=== PATIENT | male | born 1985 | race Two or more races ===

== ENCOUNTER 2019-09-13 19:29 | Emergency (ER) | payer OTHER ==
[~2019-09-13] VITALS: Ht 180.3 cm; Wt 68.2 kg
[2019-09-13 20:49] LABS: BASOPHILS % (AUTO) 0.7 % (0.0-2.0); EOSINOPHILS % (AUTO) 2.8 % (1.0-6.0); HEMATOCRIT 47.3 % (41-53); LYMPHOCYTES # (AUTO) 1.4 K/uL (1.0-4.8); MEAN CORPUSCULAR HEMOGLOBIN 32.1 pg (26.0-34.0); MEAN CORPUSCULAR HGB CONC 33.9 G/dL (31.0-37.0); MEAN CORPUSCULAR VOLUME 95 fL (80-100); MONOCYTES # (AUTO) 0.4 K/uL (0.1-1.0); MONOCYTES % (AUTO) 7.6 % (2.0-9.0); NEUTROPHILS # (AUTO) 3.2 K/uL (1.8-7.7); NEUTROPHILS % (AUTO) 61.9 % (40.0-70.0); PLATELET COUNT (AUTO) 225 K/uL (150-450); RED BLOOD CELL COUNT(AUTO) 4.99 MIL/uL (4.50-5.90); RED CELL DISTRIBUTION WIDTH 12.8 % (11.5-14.5)
[2019-09-13 21:05] LABS: ANION GAP 6 mmol/L (8-16); CARBON DIOXIDE 31 mmol/L (22-29); CHLORIDE 105 mmol/L (98-107); CREATININE 1.03 mg/dL (0.60-1.30); GLOMERULAR FILTR. RATE CALC > 60 mL/min (>60); GLUCOSE,RANDOM 117 mg/dL (70-110); POTASSIUM 4.1 mmol/L (3.5-5.1); SODIUM SERUM 142 mmol/L (136-145); UREA NITROGEN, BLOOD 14 mg/dL (7-18)
[2019-09-13 21:12] LABS: ALANINE AMINOTRANSFERASE 37 U/L (12-78); ALBUMIN 3.9 g/dL (3.4-5.0); ALKALINE PHOSPHATASE 64 U/L (46-116); ASPARTATE AMINOTRANSFERASE 20 U/L (15-37); BILIRUBIN,TOTAL 0.6 mg/dL (0.1-1.0)
[2019-09-13 21:50] LABS: AMPHET/METH SCREEN,URINE POSITIVE (NEGATIVE); BARBITURATE SCREEN, URINE NEGATIVE (NEGATIVE); BENZODIAZEPINES SCREEN,URINE NEGATIVE (NEGATIVE); CANNABINOID SCREEN,URINE POSITIVE (NEGATIVE); COCAINE SCREEN,URINE NEGATIVE (NEGATIVE); METHADONE SCREEN, URINE NEGATIVE (NEGATIVE); OPIATE SCREEN,URINE NEGATIVE (NEGATIVE)
[2019-09-13 21:53] LABS: PHENCYCLIDINE SCREEN,URINE NEGATIVE (NEGATIVE)
[2019-09-13] MEDS ORDERED: NICOTINE 7 MG/24 HOUR PATCH TD ONE (22:00)
[2019-09-13 22:20] VITALS: BP 145/94
== END 2019-09-14 00:23 | disposition home or self-care (01) ==
LOC: EMS 19:32
DX: F15.10 Other stimulant abuse, uncomplicated (principal); R45.89 Other symptoms and signs involving emotional state; F17.210 Nicotine dependence, cigarettes, uncomplicated
CPT/HCPCS: 36415; 80053; 80307; 85025; 99285; 99406; G0480

== ENCOUNTER 2020-02-11 14:01 | Inpatient (IN) | payer MEDICAID, OTHER ==
[~2020-02-11] VITALS: Ht 180.3 cm; Wt 68.2 kg
[2020-02-11 14:53] LABS: BASOPHILS % (AUTO) 0.6 % (0.0-2.0); EOSINOPHILS % (AUTO) 1.6 % (1.0-6.0); HEMATOCRIT 49.4 % (41-53); HEMOGLOBIN 16.9 g/dL (13.5-17.5); LYMPHOCYTES # (AUTO) 1.5 K/uL (1.0-4.8); LYMPHOCYTES % (AUTO) 22.2 % (22.0-44.0); MEAN CORPUSCULAR HEMOGLOBIN 32.4 pg (26.0-34.0); MEAN CORPUSCULAR HGB CONC 34.1 G/dL (31.0-37.0); MEAN CORPUSCULAR VOLUME 95 fL (80-100); MONOCYTES # (AUTO) 0.5 K/uL (0.1-1.0); MONOCYTES % (AUTO) 8.2 % (2.0-9.0); NEUTROPHILS # (AUTO) 4.5 K/uL (1.8-7.7); NEUTROPHILS % (AUTO) 67.4 % (40.0-70.0); PLATELET COUNT (AUTO) 227 K/uL (150-450); RED BLOOD CELL COUNT(AUTO) 5.21 MIL/uL (4.50-5.90); RED CELL DISTRIBUTION WIDTH 13.2 % (11.5-14.5)
[2020-02-11 15:10] LABS: ANION GAP 6 mmol/L (8-16); CALCIUM, TOTAL 9.4 mg/dL (8.8-10.5); CARBON DIOXIDE 31 mmol/L (22-29); CHLORIDE 102 mmol/L (98-107); CREATININE 1.04 mg/dL (0.60-1.30); GLOMERULAR FILTR. RATE CALC > 60 mL/min (>60); GLUCOSE,RANDOM 97 mg/dL (70-110); POTASSIUM 3.9 mmol/L (3.5-5.1); SODIUM SERUM 139 mmol/L (136-145); UREA NITROGEN, BLOOD 20 mg/dL (7-18)
[2020-02-11 15:17] LABS: ALANINE AMINOTRANSFERASE 35 U/L (12-78); ALBUMIN 4.5 g/dL (3.4-5.0); ALKALINE PHOSPHATASE 56 U/L (46-116); ASPARTATE AMINOTRANSFERASE 24 U/L (15-37); BILIRUBIN,TOTAL 0.8 mg/dL (0.1-1.0); TOTAL PROTEIN, SERUM 8.1 g/dL (6.4-8.2)
[2020-02-11 15:33] LABS: AMPHET/METH SCREEN,URINE POSITIVE (NEGATIVE); BARBITURATE SCREEN, URINE NEGATIVE (NEGATIVE); BENZODIAZEPINES SCREEN,URINE NEGATIVE (NEGATIVE); CANNABINOID SCREEN,URINE POSITIVE (NEGATIVE); COCAINE SCREEN,URINE NEGATIVE (NEGATIVE); METHADONE SCREEN, URINE NEGATIVE (NEGATIVE); OPIATE SCREEN,URINE NEGATIVE (NEGATIVE)
[2020-02-11 15:34] LABS: PHENCYCLIDINE SCREEN,URINE NEGATIVE (NEGATIVE)
[2020-02-11] MEDS ORDERED: NICOTINE 14 MG/24 HOUR PATCH TD ONE (18:30)
[2020-02-11] MEDS ORDERED: DiphenhydrAMINE HCL 50 MG/ML VIAL IM ONE (18:30)
[2020-02-11] MEDS ORDERED: ZOLPIDEM TARTRATE 10 MG TABLET PO PRN (18:30)
[2020-02-11] MEDS ORDERED: LORazepam 2 MG/ML VIAL IM ONE (18:30)
[2020-02-11] MEDS ORDERED: HALOPERIDOL LACTATE 5 MG/ML VIAL IM ONE (18:30)
[2020-02-11 22:41] VITALS: BP 103/66
[2020-02-12 04:41] VITALS: BP 125/88
[2020-02-12 10:04] VITALS: BP 131/78
[2020-02-12] MEDS: NICOTINE 21 MG/24 HOUR PATCH TD PRN (10:31)
[2020-02-12] MEDS: HALOPERIDOL 5 MG TABLET PO PRN (11:42)
[2020-02-12] MEDS: LORazepam 2 MG TABLET PO PRN (11:43)
[2020-02-12 16:24] VITALS: BP 143/79
[2020-02-13 04:26] VITALS: BP 131/86
[2020-02-13] MEDS ORDERED: HALOPERIDOL LACTATE 5 MG/ML VIAL IM ONE (05:15)
[2020-02-13] MEDS ORDERED: LORazepam 2 MG/ML VIAL IM ONE (05:15)
[2020-02-13] MEDS ORDERED: DiphenhydrAMINE HCL 50 MG/ML VIAL IM ONE (05:15)
[2020-02-13] MEDS: DIVALPROEX SODIUM 500 MG DR TABLET PO SCH ×2 (09:00→16:48)
[2020-02-13] MEDS: RisperiDONE 3 MG TABLET PO SCH ×2 (09:00→16:49)
[2020-02-13 16:17] VITALS: BP 103/66
[2020-02-14 08:19] VITALS: BP 138/94
[2020-02-14] MEDS: LORazepam 2 MG TABLET PO PRN (08:35)
[2020-02-14] MEDS: NICOTINE 21 MG/24 HOUR PATCH TD PRN (08:35)
[2020-02-14] MEDS: DIVALPROEX SODIUM 500 MG DR TABLET PO SCH ×2 (08:35→17:00)
[2020-02-14] MEDS: RisperiDONE 3 MG TABLET PO SCH ×2 (08:35→17:00)
[2020-02-14] MEDS ORDERED: HALOPERIDOL LACTATE 5 MG/ML VIAL ONE (13:00)
[2020-02-14] MEDS ORDERED: LORazepam 2 MG/ML VIAL ONE (13:00)
[2020-02-14] MEDS ORDERED: DiphenhydrAMINE HCL 50 MG/ML VIAL ONE (13:00)
[2020-02-14] MEDS ORDERED: HALOPERIDOL LACTATE 5 MG/ML VIAL IM ONE (14:00)
[2020-02-14] MEDS ORDERED: DiphenhydrAMINE HCL 50 MG/ML VIAL IM ONE (14:00)
[2020-02-14] MEDS ORDERED: LORazepam 2 MG/ML VIAL IM ONE (14:00)
[2020-02-15 05:35] VITALS: BP 123/82
[2020-02-15] MEDS: RisperiDONE 3 MG TABLET PO SCH ×2 (08:33→16:53)
[2020-02-15] MEDS: DIVALPROEX SODIUM 500 MG DR TABLET PO SCH ×2 (08:33→16:53)
[2020-02-15] MEDS ORDERED: LORazepam 2 MG/ML VIAL ONE (12:35)
[2020-02-15] MEDS ORDERED: DiphenhydrAMINE HCL 50 MG/ML VIAL ONE (12:35)
[2020-02-15] MEDS ORDERED: LORazepam 2 MG/ML VIAL IM ONE (12:45)
[2020-02-15] MEDS ORDERED: DiphenhydrAMINE HCL 50 MG/ML VIAL IM ONE (12:45)
[2020-02-15] MEDS ORDERED: HALOPERIDOL LACTATE 5 MG/ML VIAL IM ONE (12:45)
[2020-02-15 16:20] VITALS: BP 118/66
[2020-02-16] MEDS ORDERED: LORazepam 2 MG/ML VIAL ONE (05:25)
[2020-02-16] MEDS ORDERED: DiphenhydrAMINE HCL 50 MG/ML VIAL ONE (05:25)
[2020-02-16] MEDS ORDERED: HALOPERIDOL LACTATE 5 MG/ML VIAL ONE (05:25)
[2020-02-16] MEDS ORDERED: LORazepam 2 MG/ML VIAL IM ONE (05:30)
[2020-02-16] MEDS ORDERED: HALOPERIDOL LACTATE 5 MG/ML VIAL IM ONE (05:30)
[2020-02-16] MEDS ORDERED: DiphenhydrAMINE HCL 50 MG/ML VIAL IM ONE (05:30)
[2020-02-16] MEDS: RisperiDONE 3 MG TABLET PO SCH ×2 (08:47→16:50)
[2020-02-16] MEDS: DIVALPROEX SODIUM 500 MG DR TABLET PO SCH ×2 (08:47→16:50)
[2020-02-16 16:20] VITALS: BP 112/77
[2020-02-16] MEDS: LORazepam 2 MG TABLET PO PRN (16:50)
[2020-02-16] MEDS: HALOPERIDOL 5 MG TABLET PO PRN (16:51)
[2020-02-17 08:50] VITALS: BP 126/86
[2020-02-17] MEDS: RisperiDONE 3 MG TABLET PO SCH ×2 (08:59→17:51)
[2020-02-17] MEDS: DIVALPROEX SODIUM 500 MG DR TABLET PO SCH ×2 (08:59→17:51)
[2020-02-17] MEDS: NICOTINE 21 MG/24 HOUR PATCH TD PRN (12:38)
[2020-02-17 16:18] VITALS: BP 122/75
[2020-02-18] MEDS: RisperiDONE 3 MG TABLET PO SCH (08:46)
[2020-02-18] MEDS: DIVALPROEX SODIUM 500 MG DR TABLET PO SCH (08:46)
[2020-02-18 08:50] VITALS: BP 127/88
[2020-02-18] MEDS: NICOTINE 21 MG/24 HOUR PATCH TD PRN (09:36)
[2020-02-18] MEDS ORDERED: RISP3TAB14 PO (10:44)
[2020-02-18] MEDS ORDERED: DIVA-112 PO (10:44)
== END 2020-02-18 13:05 | disposition home or self-care (01) | DRG 750 ==
LOC: EMS 14:04 → B3A 18:16 → UNDOADMIN 20:00
PROVIDERS: ADMIT Psychiatry & Neurology Psychiatry; ATTEND Psychiatry & Neurology Psychiatry
DX: F20.0 Paranoid schizophrenia (principal); F12.90 Cannabis use, unspecified, uncomplicated; F15.10 Other stimulant abuse, uncomplicated; G47.00 Insomnia, unspecified; R45.850 Homicidal ideations; F17.210 Nicotine dependence, cigarettes, uncomplicated; Z56.0 Unemployment, unspecified
CPT/HCPCS: 99291; G0480; J1200; J1630; J2060

== ENCOUNTER 2020-02-20 17:43 | Inpatient (IN) | payer MEDICAID, OTHER ==
[~2020-02-20] VITALS: Ht 175.3 cm; Wt 66.7 kg
[~2020-02-20 17:43] MED LIST: DIVA-112 PO; RISP3TAB14 PO
[2020-02-20 18:42] LABS: BASOPHILS % (AUTO) 0.3 % (0.0-2.0); EOSINOPHILS % (AUTO) 1.3 % (1.0-6.0); HEMATOCRIT 41.6 % (41-53); HEMOGLOBIN 14.3 g/dL (13.5-17.5); LYMPHOCYTES # (AUTO) 1.6 K/uL (1.0-4.8); LYMPHOCYTES % (AUTO) 20.1 % (22.0-44.0); MEAN CORPUSCULAR HEMOGLOBIN 32.6 pg (26.0-34.0); MEAN CORPUSCULAR HGB CONC 34.3 G/dL (31.0-37.0); MEAN CORPUSCULAR VOLUME 95 fL (80-100); MONOCYTES # (AUTO) 0.7 K/uL (0.1-1.0); MONOCYTES % (AUTO) 8.9 % (2.0-9.0); NEUTROPHILS # (AUTO) 5.5 K/uL (1.8-7.7); NEUTROPHILS % (AUTO) 69.4 % (40.0-70.0); PLATELET COUNT (AUTO) 158 K/uL (150-450); RED BLOOD CELL COUNT(AUTO) 4.38 MIL/uL (4.50-5.90)
[2020-02-20 18:58] LABS: ANION GAP 8 mmol/L (8-16); CARBON DIOXIDE 29 mmol/L (22-29); CHLORIDE 103 mmol/L (98-107); CREATININE 0.83 mg/dL (0.60-1.30); GLOMERULAR FILTR. RATE CALC > 60 mL/min (>60); GLUCOSE,RANDOM 124 mg/dL (70-110); POTASSIUM 3.3 mmol/L (3.5-5.1); SODIUM SERUM 140 mmol/L (136-145); UREA NITROGEN, BLOOD 20 mg/dL (7-18)
[2020-02-20 19:10] LABS: ALANINE AMINOTRANSFERASE 53 U/L (12-78); ALBUMIN 3.7 g/dL (3.4-5.0); ALKALINE PHOSPHATASE 63 U/L (46-116); ASPARTATE AMINOTRANSFERASE 44 U/L (15-37); BILIRUBIN,TOTAL 0.2 mg/dL (0.1-1.0); TOTAL PROTEIN, SERUM 6.5 g/dL (6.4-8.2); VALPROIC ACID 7 mcg/mL (50-100)
[2020-02-20] MEDS ORDERED: DiphenhydrAMINE HCL 50 MG/ML VIAL IM ONE (19:15)
[2020-02-20] MEDS ORDERED: HALOPERIDOL LACTATE 5 MG/ML VIAL IM ONE (19:15)
[2020-02-20] MEDS ORDERED: LORazepam 2 MG/ML VIAL IM ONE (19:15)
[2020-02-20] MEDS ORDERED: HALOPERIDOL 5 MG TABLET PO PRN (20:15)
[2020-02-20] MEDS ORDERED: ZOLPIDEM TARTRATE 10 MG TABLET PO PRN (20:15)
[2020-02-20] MEDS: POTASSIUM CHLORIDE 20 MEQ ER TABLET PO ONE ×2 (21:23→21:26)
[2020-02-21 01:00] VITALS: BP 125/75
[2020-02-21 01:59] VITALS: BP 125/81
[2020-02-21 02:00] VITALS: BP 125/91
[2020-02-21 03:00] VITALS: BP 128/71
[2020-02-21 04:00] VITALS: BP 122/76
[2020-02-21] MEDS ORDERED: BACITRACIN 28 GM OINTMENT TP PRN (07:00)
[2020-02-21] MEDS ORDERED: LOPERAMIDE HCL 2 MG CAPSULE PO PRN (07:00)
[2020-02-21] MEDS ORDERED: MAGNESIUM HYDROXIDE SUSPENSION 30 ML UDCUP PO PRN (07:00)
[2020-02-21] MEDS ORDERED: OMEPRAZOLE 20 MG CAPSULE PO PRN (07:00)
[2020-02-21] MEDS ORDERED: ONDANSETRON HCL 4 MG TABLET PO PRN (07:00)
[2020-02-21] MEDS ORDERED: PETROLATUM,WHITE 28 GM JELLY TP PRN (07:00)
[2020-02-21] MEDS ORDERED: ACETAMINOPHEN 325 MG TABLET PO PRN (07:00)
[2020-02-21] MEDS ORDERED: CloNIDine HCL 0.1 MG TABLET PO PRN (07:00)
[2020-02-21] MEDS ORDERED: ALBUTEROL SULFATE HFA 90 MCG/PUFF 8 GM INHALER IH PRN (07:00)
[2020-02-21] MEDS ORDERED: IBUPROFEN 600 MG TABLET PO PRN (07:00)
[2020-02-21] MEDS ORDERED: BENZOCAINE/MENTHOL LOZENGE PO PRN (07:00)
[2020-02-21] MEDS ORDERED: DOCUSATE SODIUM 100 MG CAPSULE PO PRN (07:00)
[2020-02-21] MEDS ORDERED: MAG HYDROX/AL HYDROX/SIMETH ES 30 ML SUSPENSION UDCUP PO PRN (07:00)
[2020-02-21] MEDS: LORazepam 2 MG TABLET PO PRN (09:27)
[2020-02-21 13:59] VITALS: BP 127/72
[2020-02-22 06:10] VITALS: BP 127/83
[2020-02-22 08:18] LABS: CHOL/HDL RATIO 2.5 (4.2-7.3)
[2020-02-22 08:43] VITALS: BP 138/115
[2020-02-22 09:15] VITALS: BP 129/74
[2020-02-22] MEDS: DIVALPROEX SODIUM 500 MG DR TABLET PO SCH ×3 (10:15→16:55)
[2020-02-22] MEDS: RisperiDONE 3 MG TABLET PO SCH ×3 (10:15→16:55)
[2020-02-22 16:17] VITALS: BP 125/83
[2020-02-22] MEDS: LORazepam 2 MG TABLET PO PRN (16:55)
[2020-02-23 04:57] VITALS: BP 121/68
[2020-02-23 04:58] VITALS: BP 121/68
[2020-02-23] MEDS: RisperiDONE 3 MG TABLET PO SCH ×2 (09:02→16:34)
[2020-02-23] MEDS: DIVALPROEX SODIUM 500 MG DR TABLET PO SCH ×2 (09:02→16:34)
[2020-02-23 09:04] VITALS: BP 108/67
[2020-02-23 11:10] VITALS: BP 108/67
[2020-02-23 16:11] VITALS: BP 106/64
[2020-02-23] MEDS: LORazepam 2 MG TABLET PO PRN (17:37)
[2020-02-24 06:04] VITALS: BP 118/70
[2020-02-24] MEDS: RisperiDONE 3 MG TABLET PO SCH ×2 (08:35→17:07)
[2020-02-24] MEDS: DIVALPROEX SODIUM 500 MG DR TABLET PO SCH ×2 (08:35→17:07)
[2020-02-24 14:14] VITALS: BP 120/76
[2020-02-24 16:19] VITALS: BP 129/76
[2020-02-24] MEDS: LORazepam 2 MG TABLET PO PRN (17:38)
[2020-02-25 05:51] VITALS: BP 112/67
[2020-02-25 08:11] VITALS: BP 136/75
[2020-02-25] MEDS: DIVALPROEX SODIUM 500 MG DR TABLET PO SCH ×2 (08:44→16:20)
[2020-02-25] MEDS: RisperiDONE 3 MG TABLET PO SCH ×2 (08:44→16:19)
[2020-02-25 16:18] VITALS: BP 128/72
[2020-02-25] MEDS: LORazepam 2 MG TABLET PO PRN (16:20)
[2020-02-26 06:32] VITALS: BP 118/76
[2020-02-26 08:17] VITALS: BP 128/77
[2020-02-26] MEDS: RisperiDONE 3 MG TABLET PO SCH ×2 (08:35→16:48)
[2020-02-26] MEDS: DIVALPROEX SODIUM 500 MG DR TABLET PO SCH ×2 (08:35→16:48)
[2020-02-26 16:22] VITALS: BP 112/71
[2020-02-26] MEDS: LORazepam 2 MG TABLET PO PRN (16:48)
[2020-02-27] MEDS: RisperiDONE 3 MG TABLET PO SCH ×2 (08:47→17:01)
[2020-02-27] MEDS: DIVALPROEX SODIUM 500 MG DR TABLET PO SCH ×2 (08:47→17:01)
[2020-02-27 16:10] VITALS: BP 118/72
[2020-02-27] MEDS: LORazepam 2 MG TABLET PO PRN (17:01)
[2020-02-28 00:24] VITALS: BP 130/82
[2020-02-28] MEDS: DIVALPROEX SODIUM 500 MG DR TABLET PO SCH ×2 (08:38→16:45)
[2020-02-28] MEDS: RisperiDONE 3 MG TABLET PO SCH ×2 (08:38→16:45)
[2020-02-28 09:44] VITALS: BP 127/83
[2020-02-28] MEDS: LORazepam 2 MG TABLET PO PRN ×2 (11:44→16:46)
[2020-02-28 16:56] VITALS: BP 118/66
[2020-02-29 05:36] VITALS: BP 114/76
[2020-02-29 08:03] VITALS: BP 139/88
[2020-02-29] MEDS: RisperiDONE 3 MG TABLET PO SCH ×2 (08:27→16:42)
[2020-02-29] MEDS: DIVALPROEX SODIUM 500 MG DR TABLET PO SCH ×2 (08:27→16:42)
[2020-02-29] MEDS: LORazepam 2 MG TABLET PO PRN ×2 (09:26→14:00)
[2020-02-29 16:00] VITALS: BP 130/78
[2020-03-01 06:15] VITALS: BP 108/66
[2020-03-01 08:15] VITALS: BP 110/64
[2020-03-01] MEDS: LORazepam 2 MG TABLET PO PRN ×2 (08:33→14:10)
[2020-03-01] MEDS: DIVALPROEX SODIUM 500 MG DR TABLET PO SCH ×2 (08:33→16:30)
[2020-03-01] MEDS: RisperiDONE 3 MG TABLET PO SCH ×2 (08:33→16:30)
[2020-03-01 16:08] VITALS: BP 119/65
[2020-03-02 04:18] VITALS: BP 128/70
[2020-03-02 08:21] VITALS: BP 145/87
[2020-03-02] MEDS: DIVALPROEX SODIUM 500 MG DR TABLET PO SCH (08:41)
[2020-03-02] MEDS: RisperiDONE 3 MG TABLET PO SCH (08:41)
== END 2020-03-02 13:30 | disposition home or self-care (01) | DRG 750 ==
LOC: EMS 17:43 → B3A 20:09 → ICU 21:21 → UNDOADMIN 21:21
PROVIDERS: ADMIT Psychiatry & Neurology Psychiatry; ATTEND Psychiatry & Neurology Psychiatry
DX: F25.1 Schizoaffective disorder, depressive type (principal); Z59.0 Homelessness; F41.9 Anxiety disorder, unspecified; F15.10 Other stimulant abuse, uncomplicated; F12.90 Cannabis use, unspecified, uncomplicated; G47.00 Insomnia, unspecified; E87.6 Hypokalemia; R45.850 Homicidal ideations; Z79.899 Other long term (current) drug therapy; F17.210 Nicotine dependence, cigarettes, uncomplicated
CPT/HCPCS: 84132; 87081; G0480; J1200; J1630; J2060